=== PATIENT | female | born 1955 | race Asian ===

== ENCOUNTER 2016-08-06 11:54 | Outpatient (CLI) | payer OTHER ==
--- NOTE | 2016-08-06 14:08 | DIAGNOSTIC IMAGING REPORT ---
PROCEDURE: MG BILATERAL SCREENING W/CAD INDICATION: Screening. Family history breast carcinoma (sister). TECHNIQUE: Bilateral CC and MLO digital views. COMPARISON: Compared to 07/23/2015, 10/02/2013, and 08/04/2012. FINDINGS: Computer-aided detection applied. Moderately dense parenchymal pattern with a few dystrophic calcifications. No change. IMPRESSION: 1. Negative mammogram. RESULT CODE: 1- Negative. A. A negative report should not delay biopsy if a dominant or clinically suspicious mass is present. 10-15% of cancers are not identified by x-ray. B. A negative report may reinforce clinical impression. C. Adenosis and dense breasts may obscure an underlying neoplasm. D. False positive reports average 6-10%. E.. A yearly screening mammogram is recommended. A reminder letter will be scheduled.
== END 2016-08-06 23:00 | disposition home or self-care (01) ==
LOC: MAM SRH 11:54
DX: Z12.31 Encounter for screening mammogram for malignant neoplasm of breast (principal); Z80.3 Family history of malignant neoplasm of breast